=== PATIENT | female | born 1980 | race Caucasian/White ===

== ENCOUNTER 2021-08-25 04:50 | Emergency (ER) | payer MEDICAID ==
[2021-08-25] MEDS ORDERED: methylPREDNISolone Sodium Succinate 125 MG/2 ML SDV IM ONE (05:34)
--- NOTE | 2021-08-25 05:40 | EDM.PDOC ---
ED HPI GENERAL MEDICAL PROBLEM - General Chief Complaint: General Stated Complaint: LUPUS PAIN Time Seen by Provider: 08/25/21 05:20 Source of Information: Reports: Patient History Limitations: Reports: No Limitations - History of Present Illness INITIAL COMMENTS - FREE TEXT/NARRATIVE: 41-year-old female recently moved to the area was diagnosed with lupus 7 months ago, apparently she did not completely complete her treatment plan or long-term preventative strategies before moving. She is on no medications. The process of moving has caused her systemic joint pains and inflammation especially in her wrists, elbows and knees. She also has an inflamed paronychia on the ring finger on the left hand. No fevers or chills. She is fully vaccinated for Covid. She denies any fevers, shortness of breath, her main complaint is joint pain and her finger infection. She has been taking a lot of Tylenol ibuprofen without much relief. She is having difficulty sleeping. She has only been in the area for a couple of days and has not made an appointment with a physician but she intends on calling today. Onset: Unknown/Unsure (Patient was diagnosed with lupus and stage II "liver failure" 6 months ago, symptoms progressively worsening) Location: Reports: Other (Systemic joint pain) Quality: Reports: Stabbing Worsens with: Reports: Movement Associated Symptoms: Reports: Malaise. 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: Musculoskeletal History: Reports: Back Pain, Chronic, Fracture, Neck Pain, Chronic, Other (See Below) Other Musculoskeletal History: lupus Neurological History: Reports: Frequent Repetitive Habits (TICS) Endocrine/Metabolic History: Reports: Other (See Below) Other Endocrine/Metabolic History: type 2 kidney disease - Infectious Disease History Infectious Disease History: Reports: Chicken Pox, Hepatitis A, Shingles - Past Surgical History GI Surgical History: Reports: Other (See Below) Other GI Surgeries/Procedures: hernia mesh Female Surgical History: Reports: Section Social & Family History - Tobacco Use Tobacco Use Status *Q: Current Every Day Tobacco User Years of Tobacco use: 13 Packs/Tins Daily: 0.3 - Caffeine Use Caffeine Use: Reports: Coffee, Energy Drinks - Recreational Drug Use Recreational Drug Use: Yes Drug Use in Last 12 Months: Yes Recreational Drug Type: Reports: Marijuana/Hashish Recreational Drug Use Frequency: Daily ED ROS GENERAL - Review of Systems Review Of Systems: See Below Constitutional: Reports: Malaise. Denies: Fever, Chills HEENT: Denies: Vision Change Respiratory: Denies: Shortness of Breath Cardiovascular: Denies: Chest Pain GI/Abdominal: Denies: Nausea, Vomiting Musculoskeletal: Reports: Joint Pain, Joint Swelling Skin: Reports: Erythema (Slight erythema is visible around some over the larger joints including the elbows) Neurological: Denies: Paresthesia ED EXAM, GENERAL - Physical Exam Exam: See Below Exam Limited By: No Limitations General Appearance: Alert, No Apparent Distress (Looks anxious and mildly uncomfortable but not in distress) Eye Exam: Bilateral Eye: Normal Inspection Head: Atraumatic Neck: Non-Tender Respiratory/Chest: No Respiratory Distress Cardiovascular: Regular Rate, Rhythm Extremities: Other (Some palpation tenderness of the elbows, right knee and both wrists. There is slight erythema around the right elbow) Neurological: Alert, Oriented Psychiatric: Anxious Skin Exam: Warm, Dry, Other (Inflammation and swelling around the lateral paronychia of the ring finger on the left hand) Course - Vital Signs Last Recorded V/S: Last Vital Signs Temp 97.1 F 08/25/21 05:10 Pulse 76 08/25/21 05:10 Resp 18 08/25/21 05:10 BP 134/80 08/25/21 05:10 Pulse Ox 96 08/25/21 05:10 - Orders/Labs/Meds Meds: Medications Discontinued Medications Generic Name Dose Route Start Last Admin Trade Name Mavis PRN Reason Stop Dose Admin Methylprednisolone Sodium Succinate 125 mg 08/25/21 05:34 08/25/21 05:40 Methylprednisolone Sodium Succinate 125 Mg/2 Ml Sdv IM 08/25/21 05:35 125 mg ONETIME ONE Administration - Re-Assessments/Exams Free Text/Narrative Re-Assessment/Exam: 08/25/21 05:45 Patient was given 125 mg of IM Solu-Medrol to decrease the diffuse inflammation, started on doxycycline for the inflammatory paronychia, she may also get some anti-inflammatory effect from the doxycycline. She was given 6 hydrocodone for pain control for the next 24 to 48 hours while Solu-Medrol takes effect. A GRAPHIC PRODUCTION ARTIST search was done and there is no prescriptions given to this patient in the last year. Departure - Departure Time of Disposition: 05:54 Disposition: Home, Self-Care 01 Clinical Impression: Lupus arthritis Paronychia of finger Qualifiers: Laterality: left Qualified Code(s): L03.012 - Cellulitis of left finger - Discharge Information Instructions: Systemic Lupus Erythematosus, Adult, Paronychia, [id number] Referrals: PCP,None [Primary Care Provider] - Forms: ED Department Discharge Care Plan Goals: Continue with ibuprofen and Tylenol as needed, use stronger pain medication for the next 1 to 2 days while the steroid starts working. Take antibiotic twice daily as prescribed and continue soaking your finger to remove infection. Emily Bhatti would be a good physician to see to start getting primary care. Sepsis Event Note (ED) - Evaluation Sepsis Screening Result: No Definite Risk - Focused Exam Vital Signs: Vital Signs Temp Pulse Resp BP Pulse Ox 08/25/21 05:10 97.1 F 76 18 134/80 96
== END 2021-08-25 05:54 | disposition home or self-care (01) ==
LOC: JP.ED 04:50
DX: L03.012 Cellulitis of left finger (principal); L93.1 Subacute cutaneous lupus erythematosus; M13.832 Other specified arthritis, left wrist; M13.831 Other specified arthritis, right wrist; M13.861 Other specified arthritis, right knee; Z88.0 Allergy status to penicillin; Z72.0 Tobacco use
CPT/HCPCS: 96372; 99283; J2930